=== PATIENT | female | born 1995 | race Caucasian/White ===

== ENCOUNTER 2020-05-01 19:46 | Emergency (ER) | payer MEDICAID, SELFPAY ==
[2020-05-01 19:47] VITALS: BP 104/69; PULSE 119; RESP 15; TEMP 36.8; O2SAT 99
[2020-05-01 20:10] VITALS: O2SAT 99
--- NOTE | 2020-05-01 20:17 | ED.VIS.DYS ---
History of Present Illness Chief Complaint: Shortness of Breath Informant: Patient Onset: Days - 4 Activity at onset: Exertion Timing: Intermittent Quality: Dyspnea on exertion Current Severity: Gone Maximum Severity: Mild Worsened by: Exertion Relieved by: Rest Associated Symptoms: Cough, Fever - Resolved, Rhinorrhea, Sore throat - Resolved Chest Pain: None Narrative: Patient started with runny nose, congestion, sore throat, fever, but the sore throat and fever have resolved, she has had periods where she is short of breath with exertion but he gets better when she rests and when she uses an albuterol MDI, it helps a little. She does not feel short of breath right now at rest. She was concerned she may have coronavirus infection so she presents for evaluation and testing if possible. She was around a 3-year-old girl 3 or 4 days before the onset of symptoms who had upper respiratory infection symptoms that were not unlike hers, but she only had them for a few days, and she is better. Now, the girls dad also has those symptoms. They have not been tested for coronavirus. Patient states as a child she had asthma, but has not had issues with that for a long time. Patient is around 28 weeks , she has had no abdominal or vaginal issues, the baby has been kicking and moving quite a bit. Past Medical History - Allergies and Home Meds Allergies/Adverse Reactions: Allergies amoxicillin Allergy (Verified 05/01/20 19:52) Rash dextromethorphan [From Capmist DM] Allergy (Verified 05/01/20 19:52) Rash guaifenesin [From Capmist DM] Allergy (Verified 05/01/20 19:52) Rash pseudoephedrine [From Capmist DM] Allergy (Verified 05/01/20 19:52) Rash Lives: With Family Smoking Status: Current every day smoker Review of Systems General: Reports: Malaise. Denies: Chills, Fever, Sweats Eyes: Denies: Visual changes - bilaterally, Diplopia ENT: Reports: Rhinorrhea. Denies: Bilateral ear pain, Sore throat Cardiovascular: Denies: Chest pain, Palpitations Respiratory: Reports: Dyspnea, Cough, Dyspnea on exertion. Denies: Sputum, Orthopnea Gastrointestinal: Denies: Abdominal pain, Nausea, Vomiting, Diarrhea, Melena, Hematochezia Genitourinary: Denies: Dysuria, Hematuria, Frequency Musculoskeletal: Reports: Neck pain, Extremity Pain. Denies: Myalgias, Arthralgias, Back pain Skin: Denies: Rash, Wounds Neurological: Reports: Headache. Denies: Weakness, Numbness Physical Exam Vital Signs/Narrative: Vital Signs Temp Pulse Resp BP Pulse Ox 05/01/20 19:47 98.3 F 119 H 15 104/69 99 Inital Vital Signs reviewed: Yes General: Well nourished, Well developed, No Acute Distress - conversive in full sentences Head: Normocephalic, Atraumatic Eyes: Perrl, EOMI ENT: Moist mucous membranes, No rhinorrhea, TM's clear, - - POP clear Neck: Supple, Nontender, No lymphadenopathy Cardiovascular: Regular rate, Regular rhythm, No murmurs, Tachycardia Respiratory: No distress, CTA bilaterally, Chest nontender Abdomen: Soft, Nontender, Nondistended, Normal bowel sounds Back: Nontender, Normal Inspection. Negative for: CVA tenderness Extremities: Nontender, No edema. Negative for: Calf Tenderness Skin: Normal color, No rash, No Trauma Neurological: Alert, Oriented x3, Cranial nerves II-XII grossly intact, Normal Strength, Normal Sensation Psychological: Normal affect, Normal Mood Diagnostic/Tx/Re-eval Impressions Chest X-Ray 05/01/20 20:40 IMPRESSION: Normal x-ray examination of the chest. Electronically Signed: Cliff Mills MD at 21:01 EDT , Service support , 05/01/20 20:40 Chest 1 View (Portable) [RAD] Stat Laboratory Results 05/01/20 20:32 COVID-19 (FRANCIS) Negative - Medical Decision Making Patient remained asymptomatic with regards to thoracic symptoms while in emergency department. Chest x-ray is normal, I sent a COVID 19 swab and it was negative, performed while the patient was here. Her vital signs are normal, she has no resting tachycardia or hypoxemia and my suspicion for pulmonary embolus or other intrathoracic abnormality/pathology is very low. I think this was probably asthma-related, brought out by viral URI. We discussed the possibility of a false negative test, and that she should recommend testing as an outpatient for the sick contacts if still symptomatic. If negative then that would lower everyone's chances of having COVID-19. She should quarantine until that is best that she can. ED Disposition - Plan for ED Patient: Disposition: Home or Assisted Living Diagnosis: URI (upper respiratory infection), Dyspnea Instructions: ED Upper Resp Infec No Abx Tx Referrals: Doctor,Your [STAFF PHYSICIAN] - 1 Week if not improving Additional Instructions: Use your albuterol inhaler as needed for shortness of breath. If it does not help and you are so short of breath that you cannot breathe, return to the emergency department immediately.
--- NOTE | 2020-05-01 20:40 | RAD_ITS ---
STUDY: X-RAY CHEST REASON FOR EXAM: Female, 25 years old. C/O SOB, COUGH and amp; CONGESTION. CURRENTLY 28 WEEKS -- HX: ASTHMA, SMOKER TECHNIQUE: Single AP portable view of the chest. COMPARISON: None. FINDINGS: threat monitoring analyst leads are present. The lungs are clear and expanded. There is no demonstrated pleural abnormality. Normal size heart. Normal mediastinum and king. Normal visualized pulmonary arteries. Normal visualized aortic arch and descending thoracic aorta. Normal visualized thoracic spine. Normal visualized ribs, clavicles, and shoulders. There is no demonstrated abnormality of the visualized soft tissue structures of the upper abdomen. RAD/Chest 1 View (Portable) IMPRESSION: Normal x-ray examination of the chest. Electronically Signed: Cliff Mills MD at 21:01 EDT , Service support ,
[2020-05-01 21:54] VITALS: PULSE 87; RESP 20; O2SAT 98
[2020-05-01 22:01] LABS: Probe Check PASS; Specimen Processing Control PASS
[2020-05-01 23:11] VITALS: BP 106/64; PULSE 93; RESP 16; O2SAT 96
== END 2020-05-01 23:12 | disposition home or self-care (01) ==
PROVIDERS: Emergency Provider Emergency Medicine
DX: O99.513 Diseases of the respiratory system complicating pregnancy, third trimester (principal); J06.9 Acute upper respiratory infection, unspecified; O99.333 Smoking (tobacco) complicating pregnancy, third trimester; F17.200 Nicotine dependence, unspecified, uncomplicated; Z3A.28 28 weeks gestation of pregnancy
CPT/HCPCS: 71045; 87633; 87635; 99282; G2023; U0003

== ENCOUNTER 2020-07-17 17:05 | Outpatient (CLI) | payer MEDICAID, SELFPAY ==
[2020-07-17 17:22] VITALS: BP 107/70; PULSE 100; PULSE 98; TEMP 36.8; O2SAT 98
[2020-07-17 17:41] VITALS: BMI 21.7
[2020-07-17 18:16] LABS: ROM Internal Control Test YES-OK TO RESULT pt. (Internal QC); ROM Patient Test Negative (Negative)
--- NOTE | 2020-07-17 18:52 | OB.TRI.NOTE ---
- Problem List (1) 39 weeks gestation of Status: Acute History of Present Illness Date of Service: 07/17/20 Was patient seen by the physician?: Yes Reason For Visit: RULE OUT LABOR Date of Service: 07/17/20 Final MARINA: 07/22/20 Gestational age: 39 Weeks and 2 Days History of Present Illness: Patient is a 25 year old at 39.2 weeks gestation here for leaking fluid. Stated she felt like she was leaking some fluid around 3pm. She bent over and more fluid continued to come out. Denies any vaginal bleeding. Positive movement. Feeling tightening on and off, not too painful. Allergies amoxicillin Allergy (Verified 07/17/20 17:34) Rash new Allergy (Verified 07/17/20 17:35) Rash dextromethorphan [From Capmist DM] Allergy (Verified 07/17/20 17:34) Rash guaifenesin [From Capmist DM] Allergy (Verified 07/17/20 17:34) Rash pseudoephedrine [From Capmist DM] Allergy (Verified 07/17/20 17:34) Rash Laboratory Studies: Laboratory Tests 07/17/20 Range/Units 17:45 Vag Amniotic Fld Detect Negative (Negative) Review of Systems Constitutional: Denies: Chills, Fever HEENT: Denies: Head Aches Cardiovascular: Denies: Chest Pain Respiratory: Denies: Cough, Shortness of Breath Gastrointestinal: Denies: Abdominal Pain Genitourinary: Denies: Dysuria Physical Exam Vitals: Vital Signs Temp Pulse BP Pulse Ox 98.2 F 98 107/70 98 07/17/20 17:22 07/17/20 17:22 07/17/20 17:22 07/17/20 17:22 General: Alert, Oriented x3, Cooperative Cardiovascular: Regular rate, Regular Rhythm Lungs: Normal air movement Abdomen: Soft, Gravid Neurological: Cranial nerves II-XII grossly intact Cervix Dilation (cm): 0.5 - RN exam Station: -2 Effacement (%): 60 NST - FHR Rate Baby A Baseline: 160 Variability:: Moderate Accelerations:: 15 x 15 Decelerations:: Variable - 1 variable noted NST Reactive:: Yes Uterine Activity:: TOCO 2-5 minutes. Palpate mild and relaxed in between Impression/Plan A/P at 39.2 weeks gestation with possible leaking of amniotic fluid. Reactive NST ROM plus- negative CE - 0.5/60/-2 Discharge home- Patient to follow up in office this week for TRENT Dr. Robert notified.
[2020-07-17 18:55] VITALS: RESP 18
== END 2020-07-17 18:50 | disposition home or self-care (01) ==
LOC: WPOUT 17:10 → OBT 17:11
PROVIDERS: Visit Provider Advanced Practice Midwife
DX: O26.893 Other specified pregnancy related conditions, third trimester (principal); Z3A.39 39 weeks gestation of pregnancy
CPT/HCPCS: 59025; 59050; 84112; 99218; G0378

== ENCOUNTER 2020-07-21 16:00 | Outpatient (CLI) | payer MEDICAID, SELFPAY ==
[2020-07-21 16:14] VITALS: TEMP 37.3
[2020-07-21 16:15] VITALS: BP 124/71; PULSE 89
[2020-07-21 16:16] VITALS: BMI 22.5
[2020-07-21] MEDS: 0.9% Normal Saline Single 100 ML IV.SOLN. IY (17:00)
--- NOTE | 2020-07-21 17:15 | OB.TRI.NOTE ---
- Problem List (1) 39 weeks gestation of Status: Acute History of Present Illness Date of Service: 07/21/20 Was patient seen by the physician?: Yes Reason For Visit: ANN BULB Date of Service: 07/21/20 Gestational age: 39.6 History of Present Illness: Patient presents on unit for planned placement of Ann bulb and to be discharged home. Patient to return tomorrow morning for induction of labor. Allergies amoxicillin Allergy (Verified 07/17/20 17:34) Rash new Allergy (Verified 07/17/20 17:35) Rash dextromethorphan [From Capmist DM] Allergy (Verified 07/17/20 17:34) Rash guaifenesin [From Capmist DM] Allergy (Verified 07/17/20 17:34) Rash pseudoephedrine [From Capmist DM] Allergy (Verified 07/17/20 17:34) Rash Review of Systems Constitutional: Denies: Chills, Fever Eyes: Denies: Blurred vision HEENT: Denies: Head Aches Cardiovascular: Denies: Chest Pain Respiratory: Denies: Cough, Shortness of Breath Gastrointestinal: Denies: Abdominal Pain Genitourinary: Denies: Dysuria Neurological: Denies: Headaches Physical Exam Vitals: Vital Signs Temp Pulse BP 99.1 F 89 124/71 H 07/21/20 16:14 07/21/20 16:15 07/21/20 16:15 General: Alert, Oriented x3, Cooperative Cardiovascular: Regular rate Lungs: Normal air movement Abdomen: Soft, Non Tender Neurological: Cranial nerves II-XII grossly intact NST - FHR Rate Baby A Baseline: 125 Variability:: Moderate Accelerations:: 15 x 15 Decelerations:: None NST Reactive:: Appropriate for gestational age FHR Category:: Category I Uterine Activity:: 1-4 minutes. Palpate mild and relaxed in between Impression/Plan at 39.6 weeks gestation for placement of Ann bulb for outpatient care. Patient to return tomorrow AM for induction of labor Category 1 tracing/ NST reactive Consent discussed and signed by patient CE- /-1 midposition Ann bulb placed without difficulty and balloon inflated with 30 cc NS Anticipate discharge home after 1 hour of continuous monitoring Dr. Maier notified and is collaborating physician
[2020-07-21] MEDS: Acetaminophen 500 MG Tablet 1000 MG PO (17:45)
[2020-07-21 18:12] VITALS: BP 104/54; PULSE 72
[2020-07-21 18:21] VITALS: TEMP 36.7
== END 2020-07-21 18:30 | disposition home or self-care (01) ==
LOC: WPOUT 16:08 → WP 16:09
PROVIDERS: Referring Provider Advanced Practice Midwife; Visit Provider Advanced Practice Midwife
DX: Z34.03 Encounter for supervision of normal first pregnancy, third trimester (principal); Z3A.39 39 weeks gestation of pregnancy
CPT/HCPCS: 59025; 59050; 99218; G0378

== ENCOUNTER 2020-07-22 03:26 | Inpatient (IN) | payer MEDICAID, SELFPAY ==
[2020-07-21 16:16] VITALS: BMI 22.5
[2020-07-22] VITALS (41 sets, daily range): BP systolic 94–123; BP diastolic 50–74; PULSE 68–135; RESP 16; TEMP 36.5–37.3; O2SAT 97–99; BMI 21.6
[2020-07-22] MEDS: Lactated Ringers 1,000 ML 200 ML IV ×3 (04:30→14:52)
[2020-07-22 04:45] LABS: Absolute Lymphocyte Count 1.89 X10^3/uL (0.83-4.51); Absolute Neutrophil Count 14.6 X10^3/uL (2.0-7.7); Basophil# 0.04 X10^3/uL; Basophil% 0.2 % (0-1); Eosinophil# 0.14 X10^3/uL; Eosinophils% 0.8 % (0-5); Hematocrit 36.6 % (37-47); Lymphocyte # 1.89 X10^3/ul (4.0); Lymphocyte % 10.6 % (19-41); Mean Corp Hgb Conc 32.8 g/dL (32-36); Mean Corpuscular Hgb 29.6 pg (27.0-32.0); Mean Corpuscular Volume 90.1 fL (81-99); Mean Platelet Vol. 10.7 fl (6.2-12.0); Monocyte# 1.11 X10^3/uL; Monocyte% 6.2 % (0-10); NRBC Flagged by Analyzer 0 % (0-5); Neutrophil # 14.56 X10^3/uL (2.7-7.7); Neutrophil % 81.4 % (47-70); Platelet Count 286 K/mm3 (150-450); RBC Distribution Width CV 13.1 % (11.6-14.6); RBC Distribution Width SD 42.5 fl (35.1-43.9); Red Blood Count 4.06 M/mm3 (4.2-5.4); White Blood Count 17.9 K/mm3 (4.4-11.0)
[2020-07-22] MEDS: Acetaminophen 325 MG Tablet PO (05:37)
--- NOTE | 2020-07-22 07:38 | PCM.HP.OB ---
- Problem List (1) 39 weeks gestation of Status: Acute History Date of Admission: 07/22/20 Final MARINA: 07/22/20 Gestational age: 40 Weeks and 0 Days History of this : This is a 25 year-old, G [2], P [0], at 40 weeks gestational age here for elective induction of labor for maternal discomfort. Patient came into unit yesterday to have Abrams bulb placed and sent home to return today to start induction. complicated by smoking, anxiety and asthma. She was a transfer of care at 24 weeks gestation. Allergies amoxicillin Allergy (Verified 07/17/20 17:34) Rash new Allergy (Verified 07/17/20 17:35) Rash dextromethorphan [From Capmist DM] Allergy (Verified 07/17/20 17:34) Rash guaifenesin [From Capmist DM] Allergy (Verified 07/17/20 17:34) Rash pseudoephedrine [From Capmist DM] Allergy (Verified 07/17/20 17:34) Rash Home Medications: Home Medications Pnv,Calcium 72/Iron,Carb/Folic [ Plus Iron Tablet] 1 ea PO DAILY 05/01/20 busPIRone [Buspar] 5 mg PO TID 05/01/20 Ferrous Sulfate 325 mg PO QODAY 07/17/20 Smoking Status: Current every day smoker Alcohol: None Substance Use Type: Marijuana Number of Fetus(es): 1 NST - FHR Rate Baby A Baseline: 150 Variability:: Moderate Accelerations:: 15 x 15 Decelerations:: None NST Reactive:: Yes FHR Category:: Category I Uterine Activity:: irregular contractions History Past Pregnancies: Past Pregnancies Delivery Date Name GA/ Weeks Outcome Route Wt Infant Sex Labor Length Anesthesia Delivery Location Provider FOB Labs: A negative Rubella - immune HB- neg HIV- NR RPR- NR GC/CH- negative GBS negative Expected Delivery Method: Spontaneous Vaginal Review of Systems Constitutional: Denies: Chills, Fever Eyes: Denies: Blurred vision Cardiovascular: Denies: Chest Pain Respiratory: Denies: Cough, Shortness of Breath Genitourinary: Denies: Dysuria Neurological: Denies: Blurred vision Psychiatric: Reports: Anxiety Physical Exam Vitals: Vital Signs Temp Pulse BP Pulse Ox 98.3 F 114 H 111/66 99 07/22/20 07:26 07/22/20 07:30 07/22/20 07:30 07/22/20 07:28 General: Alert, Oriented x3, Cooperative Cardiovascular: Regular rate Lungs: Normal air movement Abdomen: Non Tender, Gravid Neurological: Cranial nerves II-XII grossly intact Presentation: Cephalic Cervix Dilation (cm): 4 Station: -2 Effacement (%): 80 Assessment/Plan All Active Problems (Last Updated 07/22/20 @ 08:02 by Mariela Rojas CNM) 39 weeks gestation of (Acute) Asthma (Acute) This is a 25 year-old, G [2], P [0], at 40 weeks gestational age for elective induction of labor for maternal discomfort A/P Admit to labor and delivery Routine labs IV fluids per policy Pain medications when indicated Abrams bulb out this morning with CE Start Pitocin IV and titrate per policy GBS negative COVID- 19 negative- printed result Anticipate Dr. Maier aware and is collaborating physician
[2020-07-22] MEDS: Oxytocin 30 units/NS 500 ml 30 UNITS/500 ML IV.SOLN IV (07:40)
[2020-07-22] MEDS: 0.9% Saline Lock 10 ML Syringe IV (07:41)
[2020-07-22] MEDS: Lactated Ringers 500 ML 999 ML IV (08:20)
[2020-07-22] MEDS: fentaNYL-bupivacaine (epidural) 100 ML BAG EPIDURAL ×2 (09:36→14:52)
--- NOTE | 2020-07-22 12:44 | PN.OBGYN_ITS ---
Patient Problems: Active and Suspected Problems (Last Updated 07/22/20 @ 08:02 by Mariela Rojas CNM) Asthma (Acute) Subjective: Resting in bed. Partner at bedside. Comfortable with epidural. Recent heart rate deceleration and positioned in hands and knees, recovered. Back to laying on right side. Objective: FHR: 150, moderate variability, accels, category 1. Previous heart rate late decelerations category 2 and recovered to category 1 FHT. TOCO: every 2-3, strong, lasting 60-70 seconds Pitocin at 4mus cervix: 5cm/80/0. BBOW. AROM for moderate amount of clear fluid. - Physical Exam Vitals/I&O's: Vital Signs Temp Pulse BP Pulse Ox 98.8 F 80 94/53 L 97 07/22/20 08:35 07/22/20 11:50 07/22/20 11:50 07/22/20 11:50 Weight: 142 lb 3.17 oz Body Mass Index (BMI) 21.6 Intake and Output for Last 24 Hours 07/20/20 07/21/20 07/22/20 23:59 23:59 23:59 Intake Total 1909.26 / 1909.26 Output Total 700 / 700 Balance 1209.26 / 1209.26 Laboratory Results 07/22/20 04:30: WBC 17.9 H, RBC 4.06 L, Hgb 12.0, Hct 36.6 L, MCV 90.1, MCH 29.6, MCHC 32.8, RDW Std Deviation 42.5, RDW Coeff of Maurice 13.1, Plt Count 286, MPV 10.7, Immature Gran % (Auto) 0.800, Neut % (Auto) 81.4 H, Lymph % (Auto) 10.6 L, [place] % (Auto) 6.2, Eos % (Auto) 0.8, Baso % (Auto) 0.2, Absolute Neuts (auto) 14.6 H, Absolute Lymphs (auto) 1.89, Nucleated RBC % 0 07/22/20 04:30: Blood Type A NEGATIVE, Antibody Screen Not Reportable, Antibody Identification Cancelled 07/22/20 04:30: Antibody Screen NEGATIVE Current Medications Acetaminophen (Tylenol) 325 - 650 mg PO Q4H PRN PRN PRN Reason: Pain Score 1-3 Last Admin: 07/22/20 05:37 Dose: 650 mg Documented by: Al Hydroxide/Mg Hydroxide (Mylanta Ii) 15 - 30 ml PO Q4H PRN PRN PRN Reason: INDIGESTION Citric Acid/Sodium Citrate (Bicitra) 30 ml PO X1 PRN PRN Reason: Section Ephedrine Sulfate () 10 mg IV Q10M PRN PRN Reason: hypotension Ephedrine Sulfate () 10 mg IM Q30M PRN PRN Reason: hypotension Fentanyl Citrate (Sublimaze (100mcg Ampule)) 25 - 50 mcg IV Q2H PRN PRN PRN Reason: Pain Score 4-10 Fentanyl/Bupivacaine/Sodium Chlor () 0 ml EPIDURAL UD [facility]; Protocol Last Admin: 07/22/20 09:36 Dose: 100 ml Documented by: Lactated Ringer's () 500 mls @ 999 mls/hr IV .Q31M PRN PRN Reason: Epidural Last Infusion: 07/22/20 08:51 Dose: Infused Documented by: Lactated Ringer's () 500 mls @ 999 mls/hr IV .Q31M PRN PRN Reason: Corrective Measures Lactated Ringer's () 1,000 mls @ 50 mls/hr IV .Q20H WONG Last Admin: 07/22/20 10:36 Dose: 200 mls/hr Documented by: Oxytocin/Sodium Chloride () 30 units in 500 mls @ 2 mls/hr IV .Q250H [facility] Last Infusion: 07/22/20 10:42 Dose: 8 mls/hr Documented by: Nalbuphine HCl (Nubain) 5 mg IV Q3H PRN PRN PRN Reason: ITCHING Naloxone HCl (Narcan) 0.02 mg IV Q1M PRN PRN Reason: RR< 10 AND PT UNRESPONSIVE Ondansetron HCl (Zofran) 4 mg IV Q4H PRN PRN PRN Reason: NAUSEA Prochlorperazine Edisylate (Compazine Iv) 10 mg IV Q6H PRN PRN PRN Reason: NAUSEA Sodium Chloride () 10 - 40 ml IV X1 PRN PRN Reason: SALINE FLUSH Last Admin: 07/22/20 07:41 Dose: 10 ml Documented by: Medical Necessity - Tobacco Use Smoking Status: Current every day smoker Assessment/Plan All Active Problems (Last Updated 07/22/20 @ 08:02 by Mariela Rojas CNM) 39 weeks gestation of (Acute) Asthma (Acute) A:Active labor progressing Induction of Labor for postdates P: 1) AROM 2) Continue with pitocin augmentation 3) Epidural for pain management. 4) collaborative physician and notified of patient status and plan of care. Updated on recent category 2 FHT with late decelerations with recovery to category 1 FHT.
[2020-07-22] MEDS: Ondansetron 4 MG/2 ML Vial IV (15:37)
[2020-07-22] MEDS: Oxytocin 30 units/NS 500 ml 30 UNITS/500 ML IV.SOLN 334 UNITS IV (16:20)
--- NOTE | 2020-07-22 16:44 | PCM.OPRPT ---
Problem List (1) Vaginal delivery Status: Acute (2) First degree perineal laceration Status: Acute (3) Perineal laceration of labia Status: Acute Vaginal Delivery Maternal Presentation: Medically Indicated Induction Method of Induction: Pitocin, Abrams Bulb Amniotic Membrane Rupture Type: Artificial Amniotic Fluid Description: Clear Final MARINA: 07/15/20 Final MARINA Source: [place] <20 weeks Gestational age: 41 Weeks and 0 Days Date of Procedure: 07/22/20 Pre-Operative Diagnosis: Induction of labor Post-Operative Diagnosis: Surgery/ Procedure Performed: Spontaneous Vaginal Delivery Type of Anesthesia: Epidural Description of Procedure: Progressed to complete with urge to push. Epidural for pain management. of viable female over first degree perineal laceration and bilateral labial lacerations at 1619. APGARS 8,9. Infant head delivered with body forthcoming. Infant placed on maternal abdomen, terminal meconium. Pitocin started for active 3rd stage management. Cord clamped and cut by FOB after pulsations ceased. Placenta delivered with expression via minda, intact, 3 vessel cord.Perineum inspected and revealed first degree perineal laceration and bilateral labial lacerations, repaired under epidural with 3.0 vicryl rapide. Well approximated and hemostasis achieved. Fundus firm, vaginal sweep completed. EBL 300ml. Sponge and instrument count correct. Planning to breastfeed. Mom and baby stable. Family bonding well. notified. Presentation: Vertex Placental Delivery Description: Spontaneous Placenta Disposition: [facility] Cord Vessel Description: 3 Vessels Cord Entanglement: None Estimated Blood Loss: 300ml Infant A gender: Female (1 minute): 8 (5 minute): 9 Episiotomy Description: None Laceration: Perineal Extension/lac, 1st degree Medications given after delivery: IV Pitocin Complications: None
[2020-07-22] MEDS: Acetaminophen 500 MG Tablet 1000 MG PO (20:42)
[2020-07-22 22:06] LABS: Amphetamine Urine VISTA NEGATIVE (<1000 ng/mL); Barbiturate Urine VISTA NEGATIVE (< 200 ng/mL); Benzodiazepine Urine VISTA NEGATIVE (< 200 ng/mL); Cocaine Urine VISTA NEGATIVE (< 300 ng/mL); Ecstacy Urine VISTA NEGATIVE (< 500 ng/mL); Methadone Urine VISTA NEGATIVE (< 300 ng/mL); PCP Urine VISTA NEGATIVE (< 25 ng/mL); THC Urine VISTA NEGATIVE (< 50 ng/mL); Vista UDS pH Range 6
[2020-07-23] VITALS (8 sets, daily range): BP systolic 95–114; BP diastolic 53–73; PULSE 64–93; RESP 14–16; TEMP 36.3–36.8
[2020-07-23] MEDS: Ibuprofen 600 MG Tablet PO ×3 (03:16→17:37)
[2020-07-23 04:45] LABS: Hematocrit 32.2 % (37-47); Hemoglobin 10.7 g/dL (12.0-15.0); Mean Corp Hgb Conc 33.2 g/dL (32-36); Mean Corpuscular Hgb 30.1 pg (27.0-32.0); Mean Corpuscular Volume 90.4 fL (81-99); Mean Platelet Vol. 10.7 fl (6.2-12.0); Platelet Count 225 K/mm3 (150-450); RBC Distribution Width CV 13.2 % (11.6-14.6); RBC Distribution Width SD 43.4 fl (35.1-43.9); Red Blood Count 3.56 M/mm3 (4.2-5.4); White Blood Count 21.4 K/mm3 (4.4-11.0)
[2020-07-23] MEDS: Acetaminophen 500 MG Tablet 1000 MG PO (12:54)
--- NOTE | 2020-07-23 13:20 | PCM.PN.OB ---
Patient Problems: Active and Suspected Problems (Last Updated 07/22/20 @ 08:02 by Mariela Rojas CNM) Vaginal delivery (Acute) First degree perineal laceration (Acute) Perineal laceration of labia (Acute) Asthma (Acute) Subjective: Doing well per patient and nursing staff. Ambulating and taking PO without difficulty. Voiding and passing flatus. Lochia normal. Pain controlled. . Planning D/C home tomorrow. - Physical Exam Vitals/I&O's: Vital Signs Temp Pulse Resp BP Pulse Ox 97.9 F 93 16 114/73 99 07/23/20 11:25 07/23/20 11:25 07/23/20 11:25 07/23/20 11:25 07/22/20 17:26 Oxygen Delivery Method Room Air Weight: 142 lb 3.17 oz Body Mass Index (BMI) 21.6 Intake and Output for Last 24 Hours 07/21/20 07/22/20 07/23/20 23:59 23:59 23:59 Intake Total 3630.70 / 3630.70 Output Total 2800 / 2800 Balance 830.70 / 830.70 General: Alert, Oriented x3, Cooperative HEENT: Atraumatic, Normocephalic Neck: Trachea Midline Lungs: Clear to auscultation, Normal air movement, No rhonchi, No wheeze Cardiovascular: Regular rate, Regular Rhythm, No murmurs Abdomen: Bowel Sounds Present, Soft - Fundus firm 2 below U Extremities: No edema - Veronica's negative Neurological: Deep Tendon Reflexes 2+/4 and Symmetrical Psych/Mental Status: Normal Affect, Appropriate Laboratory Results 07/22/20 04:30: Antibody Screen VICE PRESIDENT TAX 07/22/20 21:40: Urine Opiates Screen NEGATIVE, Urine Methadone Screen NEGATIVE, Ur Barbiturates Screen NEGATIVE, Ur Phencyclidine Scrn NEGATIVE, Ur Amphetamines Screen NEGATIVE, U Methamphetamin-MDMA NEGATIVE, U Benzodiazepines Scrn NEGATIVE, Urine Cocaine Screen NEGATIVE, U Cannabinoids Screen NEGATIVE, Ur Drug Screen Comment 07/23/20 04:35: WBC 21.4 H, RBC 3.56 L, Hgb 10.7 L, Hct 32.2 L, MCV 90.4, MCH 30.1, MCHC 33.2, RDW Std Deviation 43.4, RDW Coeff of Maurice 13.2, Plt Count 225, MPV 10.7 Current Medications Acetaminophen (Tylenol) 1,000 mg PO Q8H PRN PRN PRN Reason: Pain Score 1-3 Last Admin: 07/23/20 12:54 Dose: 1,000 mg Documented by: Bisacodyl (Dulcolax) 10 mg RECTAL UD PRN PRN Reason: If no BM Dibucaine (Dibucaine) 1 applic TOPICAL TID PRN PRN; Protocol PRN Reason: Discomfort Hydrocortisone (Hytone) 1 applic TOPICAL TID PRN PRN; Protocol PRN Reason: Discomfort Ibuprofen (Motrin) 600 mg PO Q6H PRN PRN PRN Reason: Pain Score 1-3 Last Admin: 07/23/20 11:27 Dose: 600 mg Documented by: Methylergonovine Maleate (Methergine) 0.2 mg IM X1 PRN PRN Reason: Excess bleeding/uterine atony Ondansetron HCl (Zofran) 4 mg IV Q4H PRN PRN PRN Reason: Nausea Senna/Docusate Sodium (Senokot-S, Radha-Colace) 1 - 2 tablet PO DAILY PRN PRN PRN Reason: Constipation Simethicone (Mylicon) 80 mg PO PCHS PRN PRN Reason: Indigestion/Stomach pain Sodium Chloride () 5 - 15 ml IV UD PRN PRN Reason: SALINE FLUSH Medical Necessity - Tobacco Use Smoking Status: Current every day smoker Assessment/Plan All Active Problems (Last Updated 07/22/20 @ 08:02 by Mariela Rojas CNM) 39 weeks gestation of (Acute) Vaginal delivery (Acute) First degree perineal laceration (Acute) Perineal laceration of labia (Acute) Asthma (Acute) A:PPD #1 P: 1) Routine care 2) Pain management 3) support 4) Planning D/C home tomorrow
--- NOTE | 2020-07-23 17:58 | CASEMGMT ---
Social Work Assessment Labor and Delivery Unit Date of Referral: 07/23/2020 Time of Referral: 05:53 Referred By: Jessica Shetty CNM Date of Intervention: 07/23/2020 Time of Intervention: 17:58 Reason for Referral: Mother of baby (MOB) with history of Anxiety. History obtained from: MOB, Father of baby (FOB), chart, nursing staff. Household composition: MOB, FOB (Lorenzo Coyle), Inga Coyle (age 5), and now this (Lennox Coyle) live with MOB?s grandmother. ?We have our own space? per FOB. Inga is FOB?s child from a different relationship and does not share maternity with this . This is first infant for MOB. Patient's parent/guardian status: MOB and FOB have been together for a year. was planned and accepted. Medical History: MOB with history prior to delivering this . MOB with vaginal delivery at 40 weeks. MOB with history of Anxiety. Infant born on 07/22/2018 with weight of 3310g and Apgars of 8 and 9 at 1min and 5min. MOB transferred care to current MEDICAL RECORDS SECRETARY at 24 weeks with reasons due to not being pleased with prior MEDICAL RECORDS SECRETARY. to follow with Dr. Harrell for pediatric care in the community. MOB plans to breast feed. Educational Status: MOB reports to have completed high school. MOB denies any concerns with comprehension or understanding. Financial Status: No financial concerns per MOB and FOB. 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 FOB has off until next Saturday. Infant Supplies: MOB reports to have all needed infant supplies include a car seat and crib. Childcare/Caregiver(s): MOB to be primary caregiver for infant. Transportation: Denies any concerns. Programs/Agencies Involved: No active community resources. Educated on WIC program if needed. Children Services/Legal Issues: Children services case ?was open? with Inga due to Inga?s biological mother per FOB. The Children services case is now closed. No legal issues per MOB and FOB. Mental Health History: MOB with history of Anxiety. MOB reports to currently being taking medication for Anxiety and ?this helps.? MOB also able to identify positive coping skills at taking a hot shower, taking a breath, and cleaning. MOB denies any active counseling. MOB denies any current or history of suicidal thoughts/plans/intents. MOB engaged in conversation with this social media community manager about signs and symptoms of depression (PPD) and MOB?s risk for PPD. Substance Use History: MOB reports THC use prior to ?here and there.? MOB reports to have stopped using THC when discovering . MOB aware of risk of using THC around infant and while using THC. MOB reports plan/intent to no longer use THC. MOB confirms that both FOB and MOB do smoke tobacco but only outside of the home and not around the children. MOB able to report that if MOB would return to using THC to not use in front of children and children would be left in the charge of a non-using adult. Maternal and Drug Screens: MOB with negative tox screen on 07/22/2020. MOB with no positive tox screens during . with pending meconium due to MOB?s self-report of THC use prior to discovering and MOB being a transfer of care. PHQ9: Did not trigger. Family/Social Stressors: Denies any recent stressors. Family dynamics to adjust to new in the home. Support Systems: MOB reports to have support from family and FOB. Depression and Anxiety/Shaken Baby/Safe Sleeping: MOB provided with written information on PPD and Anxiety along with Shaken Baby, Safe Sleeping and local community resources to [facility]. MOB and FOB responding appropriately to Shaken Baby and Safe Sleeping prompts. ASSESSMENT: Met with MOB and FOB in room. Introduced self and social media community manager role. currently in nursery with nursing staff for infant testing. MOB and FOB agreeable to speaking with this social media community manager. MOB providing verbal permission to speak openly with FOB present. MOB and FOB report to have a connection with infant and to have no concerns on returning to home. MOB with a pleasant and engaged affect. MOB aware of pending meconium and reason for pending meconium. Active support and listening provided throughout assessment. MOB and FOB presenting with positive relationship. Safe Plan of Care for related to substance use: MOB reports plan to not use THC but if MOB would use THC MOB reports plan to stop and to not use around and leave infant in care of a non-using adult. PLAN: Infant to discharge to home with MOB, FOB, Inga, and MOB?s grandmother. Pending meconium. Will continue to follow and make referrals as indicated. Lulu Figueroa BANKING MANAGER, EDS
[2020-07-24] MEDS: Acetaminophen 500 MG Tablet 1000 MG PO (02:55)
[2020-07-24 03:00] VITALS: BP 107/69; PULSE 80; RESP 16; TEMP 36.7
[2020-07-24 03:39] VITALS: BP 107/65; PULSE 69
[2020-07-24] MEDS: Dibucaine 30 GM Tube 1 APPLIC TOPICAL (03:39)
[2020-07-24] MEDS: Ibuprofen 600 MG Tablet PO (05:34)
[2020-07-24 08:59] VITALS: BP 114/59; PULSE 73
--- NOTE | 2020-07-24 10:44 | PCM.PN.OB ---
Patient Problems: Active and Suspected Problems (Last Updated 07/22/20 @ 08:02 by Mariela Rojas CNM) Vaginal delivery (Acute) First degree perineal laceration (Acute) Perineal laceration of labia (Acute) Asthma (Acute) Subjective: Doing well per patient and nursing staff. Ambulating and taking PO without difficulty. Voiding and passing flatus. Pain controlled. . Lochia normal. Planning D/C home today. - Physical Exam Vitals/I&O's: Vital Signs Temp Pulse Resp BP Pulse Ox 98.0 F 73 16 114/59 L 99 07/24/20 03:00 07/24/20 08:59 07/24/20 03:00 07/24/20 08:59 07/22/20 17:26 Oxygen Delivery Method Room Air Weight: 142 lb 3.17 oz Body Mass Index (BMI) 21.6 Intake and Output for Last 24 Hours 07/22/20 07/23/20 07/24/20 23:59 23:59 23:59 Intake Total 3630.70 / 3630.70 Output Total 2800 / 2800 Balance 830.70 / 830.70 General: Alert, Oriented x3, Cooperative HEENT: Atraumatic, Normocephalic Neck: Trachea Midline Lungs: Clear to auscultation, Normal air movement, No rhonchi, No wheeze Cardiovascular: Regular rate, Regular Rhythm, No murmurs Abdomen: Bowel Sounds Present, Soft - fundus firm 2 below U Extremities: No edema Neurological: Deep Tendon Reflexes 2+/4 and Symmetrical Psych/Mental Status: Normal Affect, Appropriate Current Medications Acetaminophen (Tylenol) 1,000 mg PO Q8H PRN PRN PRN Reason: Pain Score 1-3 Last Admin: 07/24/20 02:55 Dose: 1,000 mg Documented by: Bisacodyl (Dulcolax) 10 mg RECTAL UD PRN PRN Reason: If no BM Dibucaine (Dibucaine) 1 applic TOPICAL TID PRN PRN; Protocol PRN Reason: Discomfort Last Admin: 07/24/20 03:39 Dose: 1 applicatio Documented by: Hydrocortisone (Hytone) 1 applic TOPICAL TID PRN PRN; Protocol PRN Reason: Discomfort Ibuprofen (Motrin) 600 mg PO Q6H PRN PRN PRN Reason: Pain Score 1-3 Last Admin: 07/24/20 05:34 Dose: 600 mg Documented by: Methylergonovine Maleate (Methergine) 0.2 mg IM X1 PRN PRN Reason: Excess bleeding/uterine atony Ondansetron HCl (Zofran) 4 mg IV Q4H PRN PRN PRN Reason: Nausea Senna/Docusate Sodium (Senokot-S, Radha-Colace) 1 - 2 tablet PO DAILY PRN PRN PRN Reason: Constipation Simethicone (Mylicon) 80 mg PO PCHS PRN PRN Reason: Indigestion/Stomach pain Sodium Chloride () 5 - 15 ml IV UD PRN PRN Reason: SALINE FLUSH Medical Necessity - Tobacco Use Smoking Status: Current every day smoker Assessment/Plan All Active Problems (Last Updated 07/22/20 @ 08:02 by Mariela Rojas CNM) 39 weeks gestation of (Acute) Vaginal delivery (Acute) First degree perineal laceration (Acute) Perineal laceration of labia (Acute) Asthma (Acute) A:PPD #2 P: 1) Routine care 2) instruction 3) Follow up in 2 weeks and 6 weeks 4) Discharge home today
--- NOTE | 2020-07-24 10:50 | DCINST_ITS ---
Discharge Diet: No Restrictions Discharge Activity: Return to Normal Activity, May not drive while taking narcotic pain medications., May Shower May resume sexual activity in: 4-6 weeks Additional Activity Instructions:: Nothing in the vagina for 4-6 weeks. You may return to work/school in 6 weeks. Call your doctor if your incision/area has: Continuous Slow Oozing, Sudden Increased Bleeding, Increased Pain/ Swelling, Increased Redness, Foul Smelling Discharge Additional Instructions: If you experience any of the following, contact your healthcare provider. * Bleeding that soaks a pad every hour for 2 hours * Fever 100.4 or higher * Unrelieved incision or abdominal pain * Swelling, redness, discharge or bleeding from your incision or episiotomy site * Your incision begins to separate * Problems urinating (including inability to urinate or burning while urinating). * Visual changes * Severe headache * Flu-like symptoms * Pain or redness in one of both of your breasts * Pain, warmth, tenderness or swelling in your legs, especially the calf area * Frequent nausea and vomiting * Symptoms of depression or anxiety If you experience any of the following, call 911 or go to the nearest Emergency Room. * Chest pain * Problems breathing * Seizure activity * Partial or complete paralysis of a body part, slurred speech, weakness or drooping of the face, or a sudden inability to walk or hold your balance Allergies/Adverse Reactions: Allergies amoxicillin Allergy (Verified 07/17/20 17:34) Rash new Allergy (Verified 07/17/20 17:35) Rash dextromethorphan [From Capmist DM] Allergy (Verified 07/17/20 17:34) Rash guaifenesin [From Capmist DM] Allergy (Verified 07/17/20 17:34) Rash pseudoephedrine [From Capmist DM] Allergy (Verified 07/17/20 17:34) Rash Medications to take at Discharge Pnv,Calcium 72/Iron,Carb/Folic [ Plus Iron Tablet] 1 ea PO DAILY 05/01/20 busPIRone [Buspar] 5 mg PO TID 05/01/20 Ibuprofen [Motrin] 600 mg PO Q6H PRN PRN tablet 07/24/20 Please Follow Up With: Jessica Shetty CNM When: Call to make an appointment with your doctor in 2 weeks and 6 weeks. If you had elevated Blood Pressure or 4th degree laceration you will need to be seen in 2 weeks. Primary Care Physician: Care Physician,No Primary [Primary Care Provider] - Test Results: Test results from this visit will be discussed in further detail at your follow- up appointment, if applicable.
== END 2020-07-24 12:00 | disposition home or self-care (01) | DRG 560 ==
PROVIDERS: Advanced Practice Midwife; Admitting Provider Advanced Practice Midwife; Visit Provider Advanced Practice Midwife
DX: O76 Abnormality in fetal heart rate and rhythm complicating labor and delivery (principal); O48.0 Post-term pregnancy; O77.0 Labor and delivery complicated by meconium in amniotic fluid; O70.0 First degree perineal laceration during delivery; O99.52 Diseases of the respiratory system complicating childbirth; J45.909 Unspecified asthma, uncomplicated; O99.02 Anemia complicating childbirth; D64.9 Anemia, unspecified; O99.344 Other mental disorders complicating childbirth; F41.9 Anxiety disorder, unspecified; O99.324 Drug use complicating childbirth; F12.90 Cannabis use, unspecified, uncomplicated; O99.334 Smoking (tobacco) complicating childbirth; F17.200 Nicotine dependence, unspecified, uncomplicated; Z3A.41 41 weeks gestation of pregnancy; Z37.0 Single live birth; Z87.798 Personal history of other (corrected) congenital malformations
CPT/HCPCS: 59025; 59050; 80307; 85025; 85027; 86850; 86900; 86901; 99218; J7120; A4216; G0378; J2405

== ENCOUNTER 2023-01-03 12:48 | Outpatient (CLI) | payer MEDICAID, SELFPAY ==
[2023-01-03] VITALS (7 sets, daily range): BP systolic 101–112; BP diastolic 54–66; PULSE 73–110; TEMP 36.2–36.6; O2SAT 98–100; BMI 22.5
[2023-01-03 14:25] LABS: ROM Internal Control Test YES-OK TO RESULT pt. (Internal QC); ROM Patient Test Negative (Negative)
[2023-01-03] MEDS: Lactated Ringers 1,000 ML 999 ML IV (15:03)
--- NOTE | 2023-01-03 15:08 | OB.TRI.NOTE ---
HPI - General HPI Narrative ALAN ARCHIBALD, is a 27 F at 33 weeks gestation who presents to triage with contractions. Patient stated she started feeling cramps this morning and they continued throughout the day and have since increased in pain and frequency. She denies any loss of fluid or vaginal bleeding. Positive movement. [facility] Medical History Asthma Home Medications buspirone 5 mg tablet 5 mg PO TID anxiety 05/01/20 [History Last Taken 07/20/20] vitamins with calcium no.72-iron 29 mg-folic acid 1 mg tablet 1 ea PO DAILY 05/01/20 [History Last Taken 07/20/20] ibuprofen 600 mg tablet 600 mg PO Q6H PRN PRN Pain Score 1-3 07/24/20 [Rx Last Taken Unknown] Allergy/AdvReac Type Severity Reaction Status Date / Time amoxicillin Allergy Rash Verified 01/03/23 13:44 new Allergy Rash Verified 01/03/23 13:44 dextromethorphan Allergy Rash Verified 01/03/23 13:44 [From Capmist DM] guaifenesin [From Capmist DM] Allergy Rash Verified 01/03/23 13:44 pseudoephedrine Allergy Rash Verified 01/03/23 13:44 [From Capmist DM] Social History Smoking Status: Current every day smoker History Elective abortions Hx Para 0 Spontaneous abortions Hx # Term Pregnancies Ectopic pregnancies Hx # Pregnancies Multiple births # of living children ROS Eyes Eyes: Denies blurry vision Cardiovascular Cardiovascular: Reports none; Denies chest pain at rest, chest pain with activity or dizziness Respiratory/Chest Respiratory/Chest: Denies cough or dyspnea Gastrointestinal Gastrointestinal: Reports none and other; Denies diarrhea or vomiting Genitourinary Genitourinary: Denies dysuria Musculoskeletal Musculoskeletal: Reports none Integumentary Integumentary: Reports none; Denies rash Neurologic Neurologic: Denies dizziness, headache(s) or other visual disturbances Psychiatric Psychiatric: Reports none Physical Exam Const alert and no apparent distress General Appearance: cooperative Orientation / Consciousness: awake Exam Limitations: no limitations HEENT normocephalic Eyes General Eye: normal appearance of both eyes Neck full ROM Chest inspection of chest normal Resp normal respiratory effort and normal air movement Effort and Inspection: symmetric chest movement Auscultation: clear to auscultation bilaterally Cardio regular rate GI soft to palpation, non-tender and non-distended Inspection: and other Back/Spine normal ROM Extremity full ROM, normal capillary refill and no calf tenderness Skin no rashes or lesions noted Neuro oriented x3 and CN's II-XII intact bilaterally Psych mental status grossly normal NST FHR Rate Baby A Baseline: 140 Variability:: Moderate Accelerations:: 15 x 15 Decelerations:: None NST Reactive:: Yes FHR Category:: Category I Uterine Activity:: TOCO- 1-3 minutes Assessment & Plan (1) Threatened labor: (2) 33 weeks gestation of : (3) contractions: (4) Tobacco smoking affecting : PLAN: Plan CE- //-2- unchanged Contrations continue every 1-3 minutes and palpate mild and relaxed in between Start IV and give 1000 cc bolus Celestone 12 mg IM x 1 now and repeat in 24 hours ROM plus- neg FFN- neg Cat. 1 tracing Patient to stay for extended monitoring Dr. Lucio involved in plan of care and in route to evaluate patient
[2023-01-03 15:12] LABS: Absolute Lymphocyte Count 2.67 X10^3/uL (0.83-4.51); Absolute Neutrophil Count 7.6 X10^3/uL (2.0-7.7); Basophil# 0.04 X10^3/uL; Basophil% 0.4 % (0-1); Eosinophil# 0.14 X10^3/uL; Eosinophils% 1.2 % (0-5); Hematocrit 34.5 % (37-47); Hemoglobin 11.3 g/dL (12.0-15.0); Lymphocyte # 2.67 X10^3/ul (0.83-4.51); Lymphocyte % 23.5 % (19-41); Mean Corp Hgb Conc 32.8 g/dL (32-36); Mean Corpuscular Hgb 30.3 pg (27.0-32.0); Mean Corpuscular Volume 92.5 fL (81-99); Mean Platelet Vol. 10.7 fl (6.2-12.0); NRBC Flagged by Analyzer 0 % (0-5); Neutrophil # 7.55 X10^3/uL (2.7-7.7); Neutrophil % 66.6 % (47-70); Platelet Count 229 K/mm3 (150-450); RBC Distribution Width CV 13.2 % (11.6-14.6); Red Blood Count 3.73 M/mm3 (4.2-5.4); White Blood Count 11.4 K/mm3 (4.4-11.0)
[2023-01-03 15:19] LABS: Fetal Fibronectin Negative
[2023-01-03] MEDS: Lactated Ringers 1,000 ML 125 ML IV ×2 (15:59→23:33)
[2023-01-03] MEDS: Betamethasone/Betamethasone 30 MG/5 ML Vial 12 MG IM (16:13)
[2023-01-03 16:18] LABS: Color, Urine Yellow (Yellow); Glucose, Dipstick Normal (Normal); Ketone-Dipstick Negative (Negative); Leukocyte Esterase-Dipstick Negative /ul (Negative); Nitrite-Dipstick Negative (Negative); Occult Blood-Urine Negative /ul (Negative); Protein-Dipstick Negative (Negative); Urine Bilirubin Dipstick Negative (Negative); Urine Clarity Clear (Clear); Urine Urobilinogen Normal (Normal)
[2023-01-04] VITALS (11 sets, daily range): BP systolic 97–112; BP diastolic 55–58; PULSE 57–71; TEMP 36.5; O2SAT 98–100
[2023-01-04] MEDS: Lactated Ringers 1,000 ML 125 ML IV (07:32)
--- NOTE | 2023-01-04 08:49 | OB.TRI.NOTE ---
HPI - General HPI Narrative ALAN ARCHIBALD, is a 27 F who presents with ctxs. Maternal Data Information Final MARINA: 02[birth year] Gestational age: 33&1 PFSH PFSH Medical History Asthma Home Medications buspirone 5 mg tablet 5 mg PO TID anxiety 05/01/20 [History Last Taken 07/20/20] vitamins with calcium no.72-iron 29 mg-folic acid 1 mg tablet 1 ea PO DAILY 05/01/20 [History Last Taken 07/20/20] ibuprofen 600 mg tablet 600 mg PO Q6H PRN PRN Pain Score 1-3 07/24/20 [Rx Last Taken Unknown] Allergy/AdvReac Type Severity Reaction Status Date / Time amoxicillin Allergy Rash Verified 01/03/23 13:44 new Allergy Rash Verified 01/03/23 13:44 dextromethorphan Allergy Rash Verified 01/03/23 13:44 [From Capmist DM] guaifenesin [From Capmist DM] Allergy Rash Verified 01/03/23 13:44 pseudoephedrine Allergy Rash Verified 01/03/23 13:44 [From Capmist DM] Social History Smoking Status: Current every day smoker History Elective abortions Hx Para 0 Spontaneous abortions Hx # Term Pregnancies Ectopic pregnancies Hx # Pregnancies Multiple births # of living children NST FHR Rate Baby A Baseline: 135 Variability:: Moderate Accelerations:: 15 x 15 Decelerations:: None NST Reactive:: Yes Uterine Activity:: Irritability Assessment & Plan (1) Threatened labor: COMMENT: @ 33&1 PLAN: Patient s/p overnight observation. Cervical exam remains stable. FFN negative. Patient will follow up in office later today for BMZ#2. Reviewed PTL & FM precautions.
== END 2023-01-04 09:23 | disposition home or self-care (01) ==
LOC: WPOUT 12:55 → WP 12:56
PROVIDERS: Visit Provider Advanced Practice Midwife
DX: O47.03 False labor before 37 completed weeks of gestation, third trimester (principal); O99.333 Smoking (tobacco) complicating pregnancy, third trimester; F17.200 Nicotine dependence, unspecified, uncomplicated; Z3A.33 33 weeks gestation of pregnancy
CPT/HCPCS: 96360; 96361 ×17; 36415; 59025; 59050; 81002; 82731; 84112; 85025; 86850; 86870; 86900; 86901; 87086; 96372; 99221; J7120; G0378; J0702

== ENCOUNTER 2023-01-27 20:12 | Outpatient (CLI) | payer MEDICAID, SELFPAY ==
[2023-01-27 20:19] VITALS: BMI 23.1
[2023-01-27 20:27] VITALS: BP 109/66
[2023-01-27 20:39] VITALS: PULSE 78; TEMP 36.8; O2SAT 98
[2023-01-27 21:31] LABS: ROM Internal Control Test YES-OK TO RESULT pt. (Internal QC); ROM Patient Test Negative (Negative)
[2023-01-27] MEDS: Acetaminophen 500 MG Tablet 1000 MG PO (22:41)
--- NOTE | 2023-01-28 00:37 | OB.TRI.NOTE ---
HPI - General General Date of Admission: 01/27/23 Date of Service: 01/27/23 Chief Complaint: contractions HPI Narrative ALAN ARCHIBALD, is a 27 F who presents w/ c/o of daughter -2yrs old- jumping on abdomen, possible Srom and contractions Maternal Data Information Final MARINA: 02[birth year] Gestational age: 36 3/7 PFSH PFSH Medical History Asthma Home Medications vitamins with calcium no.72-iron 29 mg-folic acid 1 mg tablet 1 ea PO DAILY 05/01/20 [History Last Taken 01/26/23 10:00] famotidine 20 mg tablet (Pepcid) 20 mg PO DAILY 01/27/23 [History Last Taken 01/26/23] ferrous sulfate 325 mg (65 mg iron) tablet (Iron (ferrous sulfate)) 325 mg PO DAILY 01/27/23 [History Last Taken 01/26/23] Allergy/AdvReac Type Severity Reaction Status Date / Time amoxicillin Allergy Rash Verified 01/03/23 13:44 new Allergy Rash Verified 01/03/23 13:44 dextromethorphan Allergy Rash Verified 01/03/23 13:44 [From Capmist DM] guaifenesin [From Capmist DM] Allergy Rash Verified 01/03/23 13:44 pseudoephedrine Allergy Rash Verified 01/03/23 13:44 [From Capmist DM] Social History Smoking Status: Current every day smoker History Elective abortions Hx Para 0 Spontaneous abortions Hx # Term Pregnancies Ectopic pregnancies Hx # Pregnancies Multiple births # of living children NST FHR Rate Baby A Baseline: 130 Variability:: Moderate Accelerations:: 15 x 15 Decelerations:: None NST Reactive:: Yes FHR Category:: Category I Uterine Activity:: contractions q 3-5 min at times with irritability Assessment & Plan (1) 36 weeks gestation of : PLAN: High risk multigravida at 36 weeks gestation with EDC of 02/21/2023 . No evidence of SROM on ROM plus test. Some contractions but no cervical change. No evidence of labor. Abdominal trauma with her 2-year-old having jumped on her abdomen. screen was negative. 1 dose of prophylactic RhoGAM given. Follow-up in the office as needed or as scheduled. Return as needed.
== END 2023-01-27 22:52 | disposition home or self-care (01) ==
LOC: WPOUT 20:18 → WP 20:18
PROVIDERS: Referring Provider Obstetrics & Gynecology; Visit Provider Obstetrics & Gynecology
DX: O9A.213 Injury, poisoning and certain other consequences of external causes complicating pregnancy, third trimester (principal); S39.81XA Other specified injuries of abdomen, initial encounter; W50.0XXA Accidental hit or strike by another person, initial encounter; O09.43 Supervision of pregnancy with grand multiparity, third trimester; O99.333 Smoking (tobacco) complicating pregnancy, third trimester; F17.200 Nicotine dependence, unspecified, uncomplicated; Z3A.36 36 weeks gestation of pregnancy
CPT/HCPCS: 36415; 59025; 59050; 84112; 85461; 96372; 99221; G0378; J2790

== ENCOUNTER 2023-02-06 16:25 | Outpatient (CLI) | payer MEDICAID, SELFPAY ==
[2023-02-06 16:31] VITALS: BMI 23.1
[2023-02-06 16:34] VITALS: BP 117/70; PULSE 104; PULSE 97; O2SAT 98
[2023-02-06 16:36] VITALS: TEMP 36.7; O2SAT 100
[2023-02-06 17:06] LABS: ROM Internal Control Test YES-OK TO RESULT pt. (Internal QC); ROM Patient Test Negative (Negative)
--- NOTE | 2023-02-08 20:37 | OB.TRI.NOTE ---
HPI - General HPI Narrative ALAN ARCHIBALD, is a 27 F who presents at 37w6d for possible ROM. No vaginal bleeding. Maternal Data Information Final MARINA: 02[birth year] Gestational age: 37w6d [facility] Medical History Asthma Home Medications vitamins with calcium no.72-iron 29 mg-folic acid 1 mg tablet 1 ea PO DAILY 05/01/20 [History Last Taken 02/06/23] famotidine 20 mg tablet (Pepcid) 20 mg PO DAILY 01/27/23 [History Last Taken 02/06/23] ferrous sulfate 325 mg (65 mg iron) tablet (Iron (ferrous sulfate)) 325 mg PO DAILY 01/27/23 [History Last Taken 02/04/23] Allergy/AdvReac Type Severity Reaction Status Date / Time amoxicillin Allergy Rash Verified 02/06/23 17:27 new Allergy Rash Verified 02/06/23 17:27 dextromethorphan Allergy Rash Verified 02/06/23 17:27 [From Capmist DM] guaifenesin [From Capmist DM] Allergy Rash Verified 02/06/23 17:27 pseudoephedrine Allergy Rash Verified 02/06/23 17:27 [From Capmist DM] Social History Smoking Status: Current every day smoker History Elective abortions Hx Para 0 Spontaneous abortions Hx # Term Pregnancies Ectopic pregnancies Hx # Pregnancies Multiple births # of living children NST FHR Rate Baby A Baseline: 130 Variability:: Moderate Accelerations:: 15 x 15 Decelerations:: None NST Reactive:: Yes Uterine Activity:: Irregular Assessment & Plan (1) Vaginal discharge: PLAN: Plan 1) ROM plus negative. No gross flulid 2) No signs of active labor 3) D/C home
== END 2023-02-06 18:10 | disposition home or self-care (01) ==
LOC: WPOUT 16:28 → WP 16:29
PROVIDERS: Referring Provider Advanced Practice Midwife; Visit Provider Advanced Practice Midwife
DX: O99.891 Other specified diseases and conditions complicating pregnancy (principal); N89.8 Other specified noninflammatory disorders of vagina; Z3A.37 37 weeks gestation of pregnancy
CPT/HCPCS: 59025; 59050; 84112; 99221; G0378

== ENCOUNTER 2023-02-12 21:30 | Inpatient (IN) | payer MEDICAID, SELFPAY ==
[2023-02-12] VITALS (7 sets, daily range): BP systolic 113–124; BP diastolic 69–73; PULSE 60–92; TEMP 36.8–37.3; O2SAT 98–99; BMI 23.2
[2023-02-12] MEDS: 0.9% Saline Lock 10 ML Syringe IV (21:46)
[2023-02-12 21:58] LABS: Absolute Neutrophil Count 11.7 X10^3/uL (2.0-7.7); Basophil# 0.04 X10^3/uL; Basophil% 0.3 % (0-1); Eosinophils% 0.6 % (0-5); Hematocrit 37.7 % (37-47); Hemoglobin 12.5 g/dL (12.0-15.0); Lymphocyte % 18.8 % (19-41); Mean Corp Hgb Conc 33.2 g/dL (32-36); Mean Corpuscular Volume 90.4 fL (81-99); Mean Platelet Vol. 10.8 fl (6.2-12.0); Monocyte# 0.99 X10^3/uL; Monocyte% 6.2 % (0-10); NRBC Flagged by Analyzer 0 % (0-5); Neutrophil # 11.73 X10^3/uL (2.7-7.7); Neutrophil % 73.5 % (47-70); Platelet Count 226 K/mm3 (150-450); RBC Distribution Width CV 13.3 % (11.6-14.6); RBC Distribution Width SD 43.7 fl (35.1-43.9); Red Blood Count 4.17 M/mm3 (4.2-5.4)
[2023-02-12 22:32] LABS: Syphilis Antibodies Non-reactive
[2023-02-12] MEDS: Mag Hydrox/Al Hydrox/Simeth 30 ML UDC PO (22:53)
[2023-02-13] VITALS (44 sets, daily range): BP systolic 86–131; BP diastolic 47–79; PULSE 58–109; RESP 16; TEMP 36.4–37.2; O2SAT 97–100
[2023-02-13] MEDS: LACTATED RINGERS 500 ML 999 ML IV ×2 (00:12→04:25)
[2023-02-13 00:21] LABS: ROM Internal Control Test YES-OK TO RESULT pt. (Internal QC)
[2023-02-13 00:22] LABS: ROM Patient Test POSITIVE (Negative)
[2023-02-13] MEDS: Lactated Ringers 1,000 ML 200 ML IV ×2 (00:42→05:38)
[2023-02-13] MEDS: Ondansetron 4 MG/2 ML Vial IV (00:49)
[2023-02-13] MEDS: fentaNYL-bupivacaine (epidural) 100 ML BAG EPIDURAL ×2 (01:22→05:40)
--- NOTE | 2023-02-13 03:37 | NURSING ---
indwelling urinary catheter noted to have broken open/close clamp, bladder drained and plan to replace catheter with SVE recheck at 0530
[2023-02-13] MEDS: Oxytocin 15 Units/NS 250ml 15 UNITS/250 ML IV.SOLN 2 UNITS IV (06:29)
--- NOTE | 2023-02-13 08:26 | PCM.HP.OB ---
HPI - General General Date of Admission: 02/12/23 Date of Service: 02/13/23 Chief Complaint: labor HPI Narrative ALAN ARCHIBALD, is a 28 F who presented in labor over night. She denied any vaginal bleeding or leaking of fluid. She had some spontaneous rupture membrane overnight. She was started on Pitocin augmentation early this morning. Past medical history significant for antepartum anemia, history of seizures as a child none since 12 years of age, tobacco use during , and history of anxiety. Maternal Data Information Final MARINA: 02[birth year] Gestational age: 38 5/7 [facility] Medical History (Updated 02/13/23 @ 08:[address] Jessica Robert MD) Anxiety Asthma Seizures Home Medications vitamins with calcium no.72-iron 29 mg-folic acid 1 mg tablet 1 ea PO DAILY 05/01/20 [History Last Taken 02/11/23] famotidine 20 mg tablet (Pepcid) 20 mg PO DAILY hertburn 01/27/23 [History Last Taken 02/11/23] ferrous sulfate 325 mg (65 mg iron) tablet (Iron (ferrous sulfate)) 325 mg PO DAILY anemia 01/27/23 [History Last Taken 02/11/23] Allergy/AdvReac Type Severity Reaction Status Date / Time amoxicillin Allergy Rash Verified 02/12/23 20:10 new Allergy Rash Verified 02/12/23 20:10 dextromethorphan Allergy Rash Verified 02/12/23 20:10 [From Capmist DM] [email or web address] [From [facility]mist DM] Allergy Rash Verified 02/12/23 20:10 pseudoephedrine Allergy Rash Verified 02/12/23 20:10 [From Capmist DM] Surgical History (Updated 02/12/23 @ 20:20 by Radha Whitman) History of surgery Social History Smoking Status: Light Smoker (<10/day) History Elective abortions Hx Para 1 Spontaneous abortions Hx # Term Pregnancies Ectopic pregnancies Hx # Pregnancies Multiple births # of living children ROS Constitutional Constitutional: Denies fatigue, fever(s) or malaise Eyes Eyes: Denies change in vision ENT HEENT: Denies dizziness or headache(s) Cardiovascular Cardiovascular: Denies chest pain, dyspnea or lightheadedness Respiratory/Chest Respiratory/Chest: Denies cough or dyspnea Gastrointestinal Gastrointestinal: Denies change in bowel habits Genitourinary Genitourinary: Denies burning urination or genital lesions Integumentary Integumentary: Denies rash Neurologic Neurologic: Denies confusion, dizziness, headache(s), numbness or weakness Vital Signs Vital Signs Vital Signs: 02/12/23 20:05 02/12/23 20:05 02/12/23 20:05 Temperature 99.1 F Temperature Source Pulse Rate 87 Blood Pressure 124/73 H BP Systolic 124 BP Diastolic 73 Pulse Ox 02/12/23 20:10 02/12/23 22:25 02/12/23 22:26 Temperature Temperature Source Pulse Rate 82 Blood Pressure 122/69 H BP Systolic 122 BP Diastolic 69 Pulse Ox 98 02/12/23 22:26 02/12/23 22:25 02/12/23 22:27 Temperature 98.2 F Temperature Source Temporal Pulse Rate Blood Pressure BP Systolic BP Diastolic Pulse Ox 99 02/12/23 23:33 02/12/23 23:33 02/12/23 23:38 Temperature Temperature Source Pulse Rate 60 72 Blood Pressure BP Systolic BP Diastolic Pulse Ox 99 02/12/23 23:38 02/12/23 23:41 02/12/23 23:41 Temperature Temperature Source Pulse Rate 92 Blood Pressure 113/73 BP Systolic 113 BP Diastolic 73 Pulse Ox 98 02/12/23 23:41 02/13/23 00:03 02/13/23 00:03 Temperature 98.4 F Temperature Source Pulse Rate 96 Blood Pressure BP Systolic BP Diastolic Pulse Ox 99 02/13/23 00:08 02/13/23 00:08 02/13/23 00:49 Temperature Temperature Source Pulse Rate 73 87 Blood Pressure BP Systolic BP Diastolic Pulse Ox 99 02/13/23 00:49 02/13/23 00:54 02/13/23 00:54 Temperature Temperature Source Pulse Rate 109 H Blood Pressure BP Systolic BP Diastolic Pulse Ox 99 98 02/13/23 00:59 02/13/23 00:59 02/13/23 01:04 Temperature Temperature Source Pulse Rate 89 Blood Pressure 118/71 BP Systolic 118 BP Diastolic 71 Pulse Ox 99 02/13/23 01:04 02/13/23 01:04 02/13/23 01:09 Temperature Temperature Source Pulse Rate 90 Blood Pressure 131/78 H BP Systolic 131 BP Diastolic 78 Pulse Ox 99 02/13/23 01:09 02/13/23 01:09 02/13/23 01:13 Temperature Temperature Source Pulse Rate 89 Blood Pressure 125/79 H BP Systolic 125 BP Diastolic 79 Pulse Ox 100 02/13/23 01:14 02/13/23 01:14 02/13/23 01:19 Temperature Temperature Source Pulse Rate 104 H Blood Pressure 122/57 H BP Systolic 122 BP Diastolic 57 Pulse Ox 100 02/13/23 01:20 02/13/23 01:20 02/13/23 01:21 Temperature Temperature Source Pulse Rate 72 Blood Pressure 127/64 H BP Systolic 127 BP Diastolic 64 Pulse Ox 98 02/13/23 01:21 02/13/23 01:23 02/13/23 01:23 Temperature Temperature Source Pulse Rate 91 86 Blood Pressure 111/68 BP Systolic 111 BP Diastolic 68 Pulse Ox 02/13/23 01:25 02/13/23 01:25 02/13/23 01:27 Temperature Temperature Source Pulse Rate 94 Blood Pressure 116/69 BP Systolic 116 BP Diastolic 69 Pulse Ox 98 02/13/23 01:27 02/13/23 01:30 02/13/23 01:30 Temperature Temperature Source Pulse Rate 106 H 88 Blood Pressure 114/68 BP Systolic 114 BP Diastolic 68 Pulse Ox 02/13/23 01:30 02/13/23 01:33 02/13/23 01:33 Temperature Temperature Source Pulse Rate 93 Blood Pressure 114/69 BP Systolic 114 BP Diastolic 69 Pulse Ox 97 02/13/23 01:35 02/13/23 01:35 02/13/23 01:39 Temperature Temperature Source Pulse Rate 87 Blood Pressure 100/51 L BP Systolic 100 BP Diastolic 51 Pulse Ox 98 02/13/23 01:39 02/13/23 01:43 02/13/23 01:44 Temperature Temperature Source Pulse Rate 68 72 Blood Pressure 94/54 L BP Systolic 94 BP Diastolic 54 Pulse Ox 02/13/23 01:44 02/13/23 01:48 02/13/23 01:48 Temperature Temperature Source Pulse Rate 71 Blood Pressure 94/52 L BP Systolic 94 BP Diastolic 52 Pulse Ox 98 02/13/23 02:22 02/13/23 02:23 02/13/23 02:23 Temperature Temperature Source Pulse Rate 86 Blood Pressure 97/54 L BP Systolic 97 BP Diastolic 54 Pulse Ox 98 02/13/23 03:20 02/13/23 03:20 02/13/23 03:20 Temperature 99.0 F Temperature Source Pulse Rate 72 Blood Pressure 94/52 L BP Systolic 94 BP Diastolic 52 Pulse Ox 02/13/23 03:20 02/13/23 04:22 02/13/23 04:22 Temperature Temperature Source Pulse Rate 68 Blood Pressure 86/47 L BP Systolic 86 BP Diastolic 47 Pulse Ox 98 02/13/23 04:22 02/13/23 04:21 02/13/23 04:23 Temperature 99.0 F Temperature Source Pulse Rate Blood Pressure 87/50 L BP Systolic 87 BP Diastolic 50 Pulse Ox 97 02/13/23 04:23 02/13/23 04:21 02/13/23 05:34 Temperature Temperature Source Temporal Pulse Rate 69 Blood Pressure 96/55 L BP Systolic 96 BP Diastolic 55 Pulse Ox 02/13/23 05:35 02/13/23 05:35 02/13/23 05:34 Temperature 98.1 F Temperature Source Pulse Rate 72 Blood Pressure BP Systolic BP Diastolic Pulse Ox 99 02/13/23 06:31 02/13/23 06:31 02/13/23 06:32 Temperature Temperature Source Temporal Pulse Rate 77 Blood Pressure 103/56 L BP Systolic 103 BP Diastolic 56 Pulse Ox 02/13/23 06:32 02/13/23 06:31 02/13/23 07:21 Temperature 98.1 F 98.1 F Temperature Source Pulse Rate Blood Pressure BP Systolic BP Diastolic Pulse Ox 98 Weight Weight: 69.3 kg Body Mass Index (BMI) 23.2 Physical Exam Const alert and no apparent distress General Appearance: cooperative HEENT normocephalic Resp normal respiratory effort Cardio regular rate GI soft to palpation GI Narrative: gravid, nontender, appropriate for gestational age Extremity no calf tenderness General Extremity: edema Skin no wounds Rashes: No rashes noted Psych activity/motor behavior normal Labs Labs Labs: Blood Type A NEGATIVE Antibody Screen NEGATIVE Hct 37.7 % (37-47) Hgb 12.5 g/dL (12.0-15.0) Syphilis Total Ab Non-reactive Rhogam given: Yes Assessment & Plan (1) 38 weeks gestation of : PLAN: 28-year-old 3 para 1-0-1-1 who presents at 38-5/7 gestational weeks with spontaneous labor. Estimated weight clinically is less than 4500 g and pelvis clinically adequate to expect vaginal delivery. Pitocin augmentation of labor. I just ruptured a forebag for return of moderate amount of clear fluid. Cervix is currently 7/-1. May have routine pain control measures as desired. (2) Spontaneous onset of labor:
--- NOTE | 2023-02-13 09:38 | EX.PCM.OBRPT ---
Assessment & Plan (1) (spontaneous vaginal delivery): PLAN: Of a liveborn . Maternal Data Information Final MARINA: [birth year] Gestational age: 38 6/7 Vaginal Delivery Maternal Presentation Maternal Presentation: Active Labor Operative Information Date of Procedure: 02/13/23 Pre-Operative Diagnosis: labor Post-Operative Diagnosis: same Surgery / Procedure Performed: Spontaneous Vaginal Delivery Type of Anesthesia: Epidural Special Medications: none Drain: Abrams to straight drain Estimated Blood Loss: 200 Time of Delivery: 09:26 Findings Description of Procedure: A vigorous Male infant was delivered JUNIOR over An intact perineum. The remainder the infant was delivered with maternal pushing and gentle traction only in less than 15 seconds. The Pitocin infusion was initiated for active management of the third stage. The cord was clamped and cut After cord pulsation ceased. The was attended to by the waiting nursing staff. The placenta was delivered spontaneously and intact. The cervix and vagina were intact. Sponge and needle counts were correct. A vaginal sweep was completed by me. Presentation: JUNIOR Amniotic Membrane Rupture Type: Spontaneous Amniotic Fluid Description: Clear Placental Delivery Description: Spontaneous Placenta Disposition: [facility] Cord Vessel Description: 3 Vessels Cord Entanglement: None A Gender: Male (Damian) (1 minute): 8 (5 minute): 9 Delayed Cord Clamping: Yes Post Vaginal Delivery Medications Given After Delivery: IV Pitocin Episiotomy Description: None Laceration: None Complication Complications: None
[2023-02-13] MEDS: Oxytocin 15 Units/NS 250ml 15 UNITS/250 ML IV.SOLN 83 UNITS IV (10:16)
[2023-02-13] MEDS: Acetaminophen 500 MG Tablet 1000 MG PO (10:17)
--- NOTE | 2023-02-13 14:47 | NURSING ---
Fentanyl from epidural wasted with JALEN Vera. 33cc placed in pharmacy destroyer.
[2023-02-13] MEDS: Ibuprofen 600 MG Tablet PO (17:35)
[2023-02-14] MEDS: Ibuprofen 600 MG Tablet PO (00:27)
[2023-02-14 00:41] VITALS: BP 105/54; PULSE 72; RESP 16; TEMP 36.3; O2SAT 98
[2023-02-14 04:45] VITALS: BP 94/54; PULSE 65; RESP 16; TEMP 36.2; O2SAT 97
[2023-02-14 08:34] VITALS: BP 91/57; PULSE 61; RESP 16; TEMP 36.2; O2SAT 99
[2023-02-14] MEDS: Acetaminophen 500 MG Tablet 1000 MG PO (08:39)
--- NOTE | 2023-02-14 08:46 | PCM.PN.OB ---
Subjective Subjective Denies complaints Objective Data Objective Data Vital Signs: Vital Signs Temp Pulse Resp BP Pulse Ox O2 Del Method 97.1 F L 61 16 91/57 L 99 Room Air 02/14/23 08:34 02/14/23 08:34 02/14/23 08:34 02/14/23 08:34 02/14/23 08:34 02/14/23 08:34 Oxygen Delivery Method Room Air Weight: 152 lb 12.485 oz Body Mass Index (BMI) 23.2 Intake & Output: Intake and Output for Last 24 Hours 02/12/23 02/13/23 02/14/23 23:59 23:59 23:59 Intake Total 800 / 800 3175.33 / 3175.33 Output Total 980 / 980 Balance 800 / 800 2195.33 / 2195.33 Lab / Micro Data Result Diagrams: 02/12/23 21:45 Labs: Laboratory Results - last 24 hr 02/13/23 17:00: Screen NEGATIVE, Baby's Blood Type A POSITIVE, Baby's BRIANA NEGATIVE Physical Exam Const alert, oriented x3 and no apparent distress HEENT normocephalic GI soft to palpation, non-tender and non-distended GI Narrative: fundus firm, mid & below umbilicus Extremity normal to inspection and no calf tenderness Assessment & Plan (1) (spontaneous vaginal delivery): COMMENT: PPD#1 PLAN: D/c home
--- NOTE | 2023-02-14 08:47 | DCINST_ITS ---
Discharge Instructions Diet Discharge Diet: No restrictions Follow Up Care Please Follow Up With: Jessica Robert MD When: 2 & 6 weeks Test Results: Test results from this visit will be discussed in further detail at your follow- up appointment, if applicable. Discharge Plan Admission Admit Date/Time: 02/12/23 21:30 Primary Reason for Your Visit: Vaginal delivery Attending Provider: Jessica Robert Discharge Orders/Prescriptions Prescriptions: New acetaminophen 500 mg Tablet 1,000 mg PO Q6H PRN PRN (Reason: Pain 1-10 Or Fever) Qty: 0 0RF ibuprofen 600 mg Tablet 600 mg PO Q6H PRN PRN (Reason: Pain Score 1-3) Qty: 0 0RF Continued PNV,calcium 72-iron,carb-folic 1 EACH tablet 1 ea PO DAILY famotidine [Pepcid] 20 mg Tablet 20 mg PO DAILY Discontinued ferrous sulfate [Iron (ferrous sulfate)] 325 mg (65 mg iron) Tablet 325 mg PO DAILY Disposition Disposition (needs filled in before D/C Order can be placed): Home, Self Care
[2023-02-14 14:12] VITALS: BP 104/67; PULSE 61; RESP 16; TEMP 36.2; O2SAT 99
== END 2023-02-14 14:20 | disposition home or self-care (01) | DRG 560 ==
LOC: WPOUT 21:33 → WP 21:33
PROVIDERS: Advanced Practice Midwife; Admitting Provider Obstetrics & Gynecology; Referring Provider Obstetrics & Gynecology; Visit Provider Obstetrics & Gynecology
DX: O42.92 Full-term premature rupture of membranes, unspecified as to length of time between rupture and onset of labor (principal); Z37.0 Single live birth; F17.200 Nicotine dependence, unspecified, uncomplicated; O99.334 Smoking (tobacco) complicating childbirth; Z3A.38 38 weeks gestation of pregnancy; Z87.59 Personal history of other complications of pregnancy, childbirth and the puerperium
CPT/HCPCS: 59025; 59050; 84112; 85025; 85461; 86780; 86850; 86900; 86901; 99221; J7120; A4216; G0378; J2405; J2790